=== PATIENT | female | born 1935 | race Caucasian/White ===

== ENCOUNTER 2023-04-30 13:58 | Emergency (ER) | payer OTHER, SELFPAY ==
[2023-04-30 14:07] VITALS: BP 136/72; BP 144/54; PULSE 64; PULSE 86; RESP 18; TEMP 36.8; O2SAT 96; O2SAT 98; BMI 24.0
--- NOTE | 2023-04-30 14:19 | ECG_ITS ---
Test Reason : Unresponsiveness Blood Pressure : / mmHG Vent. Rate : 090 BPM Atrial Rate : 090 BPM P-R Int : 134 ms QRS Dur : 066 ms QT Int : 352 ms P-R-T Axes : 054 032 028 degrees QTc Int : 430 ms Poor data quality Sinus rhythm with Premature atrial complexes Otherwise normal ECG No previous ECGs available Referred By: Lc Black Electronically Signed By:MICHAEL CABA MD
--- NOTE | 2023-04-30 14:20 | ED_ITS ---
HPI - General Adult General Chief complaint: General Medical Stated complaint: dementia Time Seen by Provider: 04/30/23 14:09 Source: family (daughter) and old records reviewed ([place] records) History of Present Illness HPI narrative: 87 years old with history of dementia, chronic kidney disease, dysphagia, peripheral vascular disease, hypercholesteremia, resident of a custodial, presents to the emergency room after an episode of unresponsiveness. Daughter at bedside is the primary source of history. She reports that she was called by custodial same that patient will start to wake up despite septal rubs. However very time the patient arrived in emergency room daughter reports that she is back to her usual self. Patient is nonverbal at baseline, not ambulatory and does not appear to be in distress. Related Data Allergies Allergy/AdvReac Type Severity Reaction Status Date / Time No Known Allergies Allergy Verified 04/30/23 14:19 Review of Systems Review of Systems: Yes all other systems are reviewed and are negative PMFSH Social History Advance Directives: No Physical Exam ED Vital Signs: Vital Signs - 24 hr 04/30/23 14:07 04/30/23 14:29 Temperature 98.3 F Pulse Rate 64 82 Respiratory Rate 18 16 Blood Pressure 144/54 H 118/50 L Pulse Oximetry 96 98 Oxygen Delivery Method Room Air Room Air BMI result Body Mass Index 24.0 General: Alert, Not in Distress Skin: No rash, warm HEENT: Atraumatic, No Exudate or Pharyngeal Erythema Resp: Normal Breath sounds bilaterally Cardio: Regular rate and Rhythm, Normal S1, S2 ABD: Abd soft, non tender, no guarding or rebound. Normal Bowel sounds. Neuro: Alert, not verbal as per baseline, PERRL Psych: uncooperative, but calm Course Reevaluation(s) Reevaluation #1: Still asymptomatic, VS have remained stable. Patient is not in distress. Family agrees with plan to discharge back to custodial. Will discharge Time: 15:01 Medical Decision Making Medical Decision Making MDM Narrative: 87 years old presented to emergency room after an episode of unresponsiveness that has completely resolved. At bedside glucose was 103, and vital signs are within normal limits and she appears to be back to baseline according to daughter. I discussed with daughter at bedside option of doing lab work versus DCk isince the patient now is asymptomatic and doing lab work may increase patient lenght of stay, with relative risks. We agreed in hold in lab work. will get covid swab and ekg to ruleout arrhythmias Differential Diagnosis hypoglycemia, med reaction, viral syndrome Admission/Observation Consideration of admission/observation: Escalation of care including admission/observation considered Lab Data Labs: Lab Results 04/30/23 Range/Units 14:28 POC Glucose 103 (60-115) mg/dL Independent Interpretation I performed an independent interpretation of an: EKG (sinus rhythm) External Record Review External record reviewed: Other ([place] records) Tests considered The following testing was considered but not selected: CBC, CMP Discharge Plan Discharge Clinical Impression: Encounter for wellness examination Patient Disposition: Home, Self-Care Additional Instructions: Return to emergency room if patient develops fever, shortness of breath, abdominal pain. Follow-up with the primary care physician within a week Referrals: Kelly Tripp MD [Primary Care Provider] -
[2023-04-30 14:29] VITALS: BP 118/50; PULSE 82; RESP 16; O2SAT 98
[2023-04-30 14:32] LABS: Glucose, Whole Blood 103 mg/dL (60-115)
--- NOTE | 2023-04-30 15:13 | PC.NURSE ---
Report given to Derek at [facility], daughter at bedside aware of plan of care. Transportation booked
--- NOTE | 2023-04-30 15:21 | PC.NURSE ---
Discharge plan reviewed with daughter who verbalized understanding
[2023-04-30 15:31] LABS: Influenza A PCR NEGATIVE (Negative); Influenza B PCR NEGATIVE (Negative); Resp Syncy Virus RNA Qual PCR NEGATIVE (Negative); SARS COV2 PCR INHOUSE NEGATIVE (Negative)
[2023-04-30 15:38] VITALS: BP 117/69; PULSE 87; RESP 16; TEMP 36.5; O2SAT 96
--- NOTE | 2023-04-30 15:39 | MHC.EDTECH ---
This pct assumed care of pt at 1500 ,vitals taken ,pt was incontinent of urine ,Rona care given and all extra blanket remove ,warm blanket given .
--- NOTE | 2023-04-30 16:02 | PC.NURSE ---
Transported back to [facility] by EMS
== END 2023-04-30 16:05 | disposition home or self-care (01) ==
PROVIDERS: Emergency Provider Student in an Organized Health Care Education/Training Program; PCP Internal Medicine
DX: F03.90 Unspecified dementia, unspecified severity, without behavioral disturbance, psychotic disturbance, mood disturbance, and anxiety (principal); R13.10 Dysphagia, unspecified; R94.31 Abnormal electrocardiogram [ECG] [EKG]; Z20.822 Contact with and (suspected) exposure to COVID-19; Z20.828 Contact with and (suspected) exposure to other viral communicable diseases
CPT/HCPCS: 0241U; 82947; 93005; 99283; 99284